=== PATIENT | male | born 1980 | race Caucasian/White ===

== ENCOUNTER 2021-12-30 20:41 | Emergency (ER) | payer OTHER ==
[~2021-12-30 20:41] MED LIST: FLOMAX0.4 MG PO; HYDROCODON-ACE1 EAC4 PO; MOTRIN600 MG PO; NAPROXEN500 MG PO
[2021-12-30] MEDS ORDERED: TOBRAMYCIN5 ML EYELF (22:15)
== END 2021-12-30 22:48 | disposition home or self-care (01) ==
LOC: FER 20:41
DX: H57.12 Ocular pain, left eye (principal); T55.1X1A Toxic effect of detergents, accidental (unintentional), initial encounter; Z28.310 Unvaccinated for COVID-19
CPT/HCPCS: 99283